=== PATIENT | female | born 1980 | race Caucasian/White ===

== ENCOUNTER 2023-12-28 15:19 | Emergency (ER) | payer OTHER, SELFPAY ==
--- NOTE | ~2023-12-28 | XR_ITS ---
EXAMINATION: XR chest 2V DATE: 12/28/2023 16:06 INDICATION: Productive cough. TECHNIQUE: Frontal and lateral views of the chest were obtained. COMPARISON: None. FINDINGS: There is no pneumonia, pleural effusion, or pneumothorax. The heart size is normal. There i s an interatrial closure device. IMPRESSION: 1. No acute cardiopulmonary disease. Reviewed, dictated and finalized at location A.
[2023-12-28 15:31] VITALS: BP 119/66; PULSE 74; RESP 18; TEMP 36.6; O2SAT 97
--- NOTE | 2023-12-28 15:45 | ED.URI ---
HPI - URI/Sore Throat General Chief Complaint: Upper Respiratory Infection Stated Complaint: Cough/ congestion Time Seen by Provider: 12/28/23 15:45 Source: patient, RN notes reviewed and old records reviewed Mode of arrival: ambulatory Limitations: no limitations History of Present Illness HPI Narrative: patient with 10-14 days of cough, worsening. She reports that she has associated fatigue, night sweats, generally feeling yucky . She denies any shortness of breath, denies any wheezing. She does report feeling congested in the chest. Does not feel as though she has sinus pain or pressure. She voices no other concerns or complaints. She does report that she has had several sick contacts, some with pneumonia Related Data Home Medications Medication Instructions Recorded Confirmed black cohosh 40 mg tablet 40 mg PO DAILY 12/28/23 12/28/23 cholecalciferol (vitamin D3) 10 10 mcg PO DAILY 12/28/23 12/28/23 mcg (400 unit) tablet omega-3 fatty acids 1,000 mg PO DAILY 12/28/23 12/28/23 Allergies Allergy/AdvReac Type Severity Reaction Status Date / Time No Known Allergies Allergy Verified 12/28/23 15:46 Review of Systems Review of Systems: All systems reviewed & are unremarkable except as noted in HPI and below Constitutional: Constitutional: Reports no additional constitutional complaints, Reports fatigue and Reports night sweats ENT: Reports system reviewed and no additional complaints, except as documented Cardiovascular: Cardiovascular: Reports no additional cardiovascular complaints Respiratory: Respiratory: Reports no additional respiratory complaints, Reports chest congestion and Reports cough Gastrointestinal: Gastrointestinal: Reports no additional gastrointestinal complaints Exam Const: General: cooperative, no acute distress, alert and awake Orientation/consciousness: oriented to person, oriented to place and oriented to time HENMT: Head: normal to inspection Mouth: Yes moist mucous membranes Resp: Effort & Inspection: normal respiratory effort and able to speak in complete sentences Auscultation: clear to auscultation bilaterally, no crackles, no rales, no rhonchi, no wheezes and diminished lung sounds Cardio: Palpation: normal PMI Rate: regular rate Rhythm: regular rhythm Heart sounds: S1 normal heart sound present and S2 normal heart sound present Neuro: General: oriented to person, oriented to place and oriented to time Cranial nerves: Yes CN's II-XII intact bilaterally Psych: Appearance: grossly normal Thought process: Normal thought process present Insight: Good insight present (Psych) Judgement: Good judgement present (Psych) Course Course Level of Care: Express Care Visit Vital Signs Vital signs: Vital Signs Temperature 97.8 F 12/28/23 15:31 Pulse Rate 74 12/28/23 15:31 Respiratory Rate 18 12/28/23 15:31 Blood Pressure 119/66 12/28/23 15:31 Pulse Oximetry 97 12/28/23 15:31 Oxygen Delivery Room Air 12/28/23 15:31 Temperature 97.8 F 12/28/23 15:31 Pulse Rate 74 12/28/23 15:31 Respiratory Rate 18 12/28/23 15:31 Blood Pressure 119/66 12/28/23 15:31 Pulse Oximetry 97 12/28/23 15:31 Oxygen Delivery Room Air 12/28/23 15:31 MDM - URI/Sore Throat MDM Narrative Medical decision making narrative: patient with cough, fatigue, night sweats. Negative chest x-ray. Harsh sounding cough on exam. Will prescribe prednisone burst, Zithromax for added anti-inflammatory properties, cough suppressant, bronchodilator. She is to follow with primary care provider, emergency department for any new or worse symptoms. Discharge instructions reviewed with patient, as well as provided in writing per nursing staff. The instructions also include specific and strict return/GO TO THE ER as well as f/u information. All questions have been answered, and the patient deny any further questions with discharge and discharge plan. Some parts of this dicta
== END 2023-12-28 16:34 | disposition home or self-care (01) ==
PROVIDERS: Emergency Provider Nurse Practitioner Family
DX: J40 Bronchitis, not specified as acute or chronic (principal)
CPT/HCPCS: 71046; 99213; G0463